=== PATIENT | male | born 1965 | race Caucasian/White ===

== ENCOUNTER 2024-05-14 15:57 | Emergency (ER) | payer BC, OTHER ==
[~2024-05-14] VITALS: Ht 180.3 cm; Wt 102.1 kg
[2024-05-14 16:05] VITALS: BP 127/89
== END 2024-05-14 18:35 | disposition home or self-care (01) ==
LOC: ER 15:57
DX: S01.21XA Laceration without foreign body of nose, initial encounter (principal); S01.112A Laceration without foreign body of left eyelid and periocular area, initial encounter; W29.3XXA Contact with powered garden and outdoor hand tools and machinery, initial encounter; Z88.0 Allergy status to penicillin
CPT/HCPCS: 12013; 99282-25